=== PATIENT | female | born 1965 | race Asian ===

== ENCOUNTER 2020-02-07 17:51 | Outpatient (CLI) | payer BC ==
--- NOTE | 2020-02-08 11:43 | Ultrasound Report ---
PROCEDURE: Pelvic w/Transvaginal INDICATIONS: Postmenopausal bleeding TECHNIQUE: Real-time scanning was performed of the pelvic organs, with image documentation. Additional endovagi nal scanning was necessary due to incomplete visualization of the adnexal and endometrial structures by transabdominal scanning. COMPARISON: None. FINDINGS: Transabdominal scanning: Limited scanning through the kidneys shows no hydronephrosis. Simple right renal cyst noted. No pathologic free abdominal or pelvic fluid. Endovaginal scanning: Uterus: Uterus measures approximately 9.2 x 7.2 x 7.4 cm. There is an intramural uterine fibroid in the left uterus in the mid and upper segments measuring approximately 8.0 x 7.2 x 6.2 cm. The double layer endometrial stripe complex measures approximately 7 mm in maximum thickness. Ovaries: The left ovary is not visualized. The right ovary is normal in size and appearance measurin g approximately 0.7 x 1.5 x 2.2 cm. No ovarian or adnexal mass on the right. IMPRESSION: Approximately 8 cm intramural uterine fibroid. Endometrial stripe complex measures approximately 7 mm in double layer thickness, greater than expect ed for the patient's age. EMB could be considered. Nonvisualized left ovary. Normal appearance of the right ovary. Reviewed by: Blaise Marion MD on 02/08/2020 11:42 AM PDT Approved by: Blaise Marion MD on 02/08/2020 11:42 AM PDT Station ID: [id number]
== END 2020-02-07 17:52 | disposition home or self-care (01) ==
LOC: DI 17:51
PROVIDERS: ATTEND Obstetrics & Gynecology
DX: R10.2 Pelvic and perineal pain (principal); N85.2 Hypertrophy of uterus; D25.1 Intramural leiomyoma of uterus
CPT/HCPCS: 76830; 76856